=== PATIENT | female | born 1945 | race American Indian/Alaskan Native ===

== ENCOUNTER 2016-05-22 10:23 | Observation (INO) | payer OTHER, MEDICAID ==
[2016-05-22 10:41] VITALS: BMI 26.9
[2016-05-22] MEDS ORDERED: Sodium Chloride 0.9% 500 ML IV ONE ×2 (12:08→13:15)
--- NOTE | 2016-05-22 12:26 | C.PDOC ---
History Of Present Illness The patient, a 71 y/o female, presents to the emergency department for evaluation of symptoms of vertigo which began this morning. Patient states her vertigo worsens when she stands. Patient also notes pain in her left shoulder and upper back. She denies fever, chills, headache, recent trauma/injury. Time Seen by Provider: 05/22/16 11:32 Chief Complaint (Nursing): Dizziness/Lightheaded History Per: Patient History/Exam Limitations: no limitations Onset/Duration Of Symptoms: Hrs Current Symptoms Are (Timing): Still Present Additional History Per: Patient Past Medical History Reviewed: Historical Data, Nursing Documentation, Vital Signs Vital Signs: Last Vital Signs Temp 97.6 F 05/22/16 10:40 Pulse 52 L 05/22/16 13:25 Resp 17 05/22/16 13:25 BP 146/65 05/22/16 13:25 Pulse Ox 99 05/22/16 15:24 - Medical History PMH: HTN Surgical History: No Surg Hx Family History: States: Unknown Family Hx - Social History Hx Tobacco Use: Yes Hx Alcohol Use: No Hx Substance Use: No - Immunization History Hx Tetanus Toxoid Vaccination: No Hx Influenza Vaccination: Yes Hx Pneumococcal Vaccination: No Review Of Systems Except As Marked, All Systems Reviewed And Found Negative. Constitutional: Negative for: Fever, Chills Musculoskeletal: Positive for: Shoulder Pain (left), Back Pain (upper) Neurological: Positive for: Other (+vertigo-like symptoms ) Physical Exam - Physical Exam Appears: Non-toxic, No Acute Distress, Other (unsteady ) Skin: Normal Color, Warm, Dry Head: Atraumatic, Normacephalic Eye(s): bilateral: Normal Inspection, EOMI Ear(s): Bilateral: Normal Oral Mucosa: Moist Neck: Normal ROM, Supple Chest: No Symmetrical (chronic asymmetry of shoulders (L compared to R)), No Deformity, No Tenderness Cardiovascular: Rhythm Regular, No Murmur Respiratory: Normal Breath Sounds, No Rales, No Rhonchi, No Wheezing Back: Normal Inspection, No Vertebral Tenderness, No Decreased ROM, No Paraspinal Tenderness Extremity: Normal ROM, Capillary Refill (less than 2 seconds) Neurological/Psych: Oriented x3, Normal Speech Gait: Unsteady ED Course And Treatment - Laboratory Results Result Diagrams: 05/22/16 13:31 05/22/16 14:15 ECG: Interpreted By Me ECG Rhythm: Sinus Bradycardia ECG Interpretation: Normal Rate From EC O2 Sat by Pulse Oximetry: 99 (on RA) Pulse Ox Interpretation: Normal Progress Note: Labs,CT Head, CXR, and EKG ordered and reviewed. Patient received Antivert PO and IV Fluids. ED OBSERVATION Discharge: Yes Date of observation admission: 05/22/16 Time of observation admission: 11:00 - Observation admission statement Patient is being placed in observation because:: DIZZY; CHRONIC BACK PAIN - Goals of Observation Goals of observation are:: NEG ACUTE NEURO; SX IMPROVE - Progress Note Progress Note: 05/22/16 15:39 FEELS BETTER, AMBUL WO DIFF. TOLERATING PO. Disposition Counseled Patient/Family Regarding: Studies Performed, Diagnosis, Need For Followup, Rx Given - Disposition Disposition: HOME/ ROUTINE Disposition Time: 15:40 Condition: IMPROVED - POA Present On Arrival: None - Clinical Impression Clinical Impression: Vertigo, Shoulder pain, Muscle pain - Scribe Statement The provider has reviewed the documentation as recorded by the Scribe (Jackelin Perez) Provider Attestation: All medical record entries made by the Scribe were at my direction and personally dictated by me. I have reviewed the chart and agree that the record accurately reflects my personal performance of the history, physical exam, medical decision making, and the department course for this patient. I have also personally directed, reviewed, and agree with the discharge instructions and disposition.
--- NOTE | 2016-05-22 13:30 | CT ---
PROCEDURE: CT HEAD WITHOUT CONTRAST. HISTORY: DIZZY COMPARISON: Comparison made with prior study dated 02/18/2014. . TECHNIQUE: Axial computed tomography images were obtained through the head/brain without intravenous contrast. Radiation dose: Total exam DLP = 782.31 mGy-cm. FINDINGS: HEMORRHAGE: No acute parenchymal, subarachnoid or extra-axial hemorrhage. BRAIN: Minor chronic periventricular white matter ischemic changes seen extending peripherally into the deep white matter both cerebral hemispheres. VENTRICLES: Mild generalized volume loss. CALVARIUM: There are no acute calvarial fractures. Somewhat elliptical shaped lucency within the right parietal calvarium nonspecific. This appears stable when compared with prior study. PARANASAL SINUSES: Frontal sinuses are hypoplastic. Remaining visualized paranasal sinuses are well-developed and currently well-aerated. MASTOID AIR CELLS: Unremarkable as visualized. No inflammatory changes. OTHER FINDINGS: None. IMPRESSION: No acute intracranial hemorrhage. Mild chronic white matter ischemic changes. Mild generalized volume loss.
[2016-05-22 13:34] LABS: BASO # 0.1 K/uL (0.0-0.2); BASO % 0.8 % (0.0-2.0); EOS % 0.6 % (0.0-4.0); HEMATOCRIT 43.5 % (34.0-47.0); LYMPH # 3.8 K/uL (1.0-4.3); LYMPH % 53.4 % (20.0-40.0); MEAN CELL VOLUME 88.2 fL (81.0-99.0); MEAN CORPUSCULAR HEMOGLOBIN 29.2 pg (27.0-31.0); MEAN CORPUSCULAR HGB CONC 33.1 g/dL (33.0-37.0); MEAN PLATELET VOLUME 9.3 fL (7.2-11.7); MONO # 0.4 K/uL (0.0-0.8); NRBC % 0.1 % (0.0-2.0); RED CELL DISTRIBUTION WIDTH 13.9 % (11.5-14.5); WHITE BLOOD COUNT 7.1 K/uL (4.8-10.8)
[2016-05-22 14:31] LABS: CHLORIDE 105 mmol/L (98-107); SODIUM 140 mmol/L (132-148)
[2016-05-22 14:32] LABS: POTASSIUM 4.1 mmol/L (3.6-5.2)
[2016-05-22 14:34] LABS: GFR AFRICAN-AMERICAN > 60
[2016-05-22 14:35] LABS: BLOOD UREA NITROGEN 13 mg/dL (7-17); CALCIUM 8.7 mg/dl (8.6-10.4); CARBON DIOXIDE 24 mmol/L (22-30); GLUCOSE,RANDOM 79 mg/dL (65-105)
--- NOTE | 2016-05-22 14:48 | RAD ---
PROCEDURE: CHEST RADIOGRAPH, 1 VIEW HISTORY: DIZZY COMPARISON: Comparison chest dated 02/18/2014 FINDINGS: LUNGS: No acute cardiopulmonary disease PLEURA: No pneumothorax or pleural fluid seen. CARDIOVASCULAR: Heart size upper limits of normal. Aorta is slightly ectatic and uncoiled. OSSEOUS STRUCTURES: No significant abnormalities. VISUALIZED UPPER ABDOMEN: Normal. OTHER FINDINGS: None. IMPRESSION: No acute cardiopulmonary disease.
[2016-05-22 15:51] VITALS: BP 122/80; PULSE 61; RESP 18; TEMP 97.9; O2SAT 98
--- NOTE | 2016-05-23 20:17 | CARD ---
APPROVED REPORT EKG Measurement Heart [id number] <Conclusion> Sinus bradycardia Voltage criteria for left ventricular hypertrophy Cannot rule out Septal infarct, age undetermined Abnormal ECG
== END 2016-05-22 15:40 | disposition home or self-care (01) ==
LOC: C.ER 10:23 → C.9OBSV 11:00
PROVIDERS: ADMIT Emergency Medicine; ATTEND Emergency Medicine
DX: R42 Dizziness and giddiness (principal); M25.512 Pain in left shoulder; M54.6 Pain in thoracic spine; I10 Essential (primary) hypertension; F17.210 Nicotine dependence, cigarettes, uncomplicated
CPT/HCPCS: 36415; 70450; 71010; 80048; 84484; 85025; 93005; 99285; G0378; J7040

== ENCOUNTER 2016-12-23 13:41 | Emergency (ER) | payer OTHER, MEDICAID ==
[2016-12-23 13:41] VITALS: BMI 26.9
[2016-12-23 13:58] VITALS: TEMP 98.1
[2016-12-23] MEDS ORDERED: Sodium Chloride 0.9% 1,000 ML IV STA (14:27)
--- NOTE | 2016-12-23 14:31 | C.PDOC ---
History Of Present Illness 71 y/o F c PMHx HTN p/w L sided neck pain and swelling x 2 days. Patient reports feeling nauseated. She denies trouble swallowing, pulsatile mass, vision change, tinnitus, neck stiffness, fever, dyspnea, sore throat, trauma. Time Seen by Provider: 12/23/16 14:21 Chief Complaint (Nursing): Back Pain Past Medical History Vital Signs: Last Vital Signs Temp 98.1 F 12/23/16 16:40 Pulse 67 12/23/16 16:40 Resp 18 12/23/16 16:40 BP 151/80 H 12/23/16 16:40 Pulse Ox 100 12/23/16 16:40 - Medical History PMH: HTN Family History: States: Unknown Family Hx - Social History Hx Tobacco Use: Yes Hx Alcohol Use: No Hx Substance Use: No - Immunization History Hx Tetanus Toxoid Vaccination: No Hx Influenza Vaccination: Yes Hx Pneumococcal Vaccination: No Review Of Systems Except As Marked, All Systems Reviewed And Found Negative. Constitutional: Negative for: Fever Respiratory: Negative for: Shortness of Breath Physical Exam - Physical Exam Additional Physical Exam Comments: Constitutional: No acute distress. Head: Normocephalic. Atraumatic. Eyes: PERRL. ENT: Moist mucous membranes. No erythema or exudate. No mass visible in oropharynx. Neck: Supple. No discernible swelling. No bruit or thrill in neck. No nuchal rigidity. Cardiovascular: Regular rate. Radial pulse 2+ bilaterally. Chest: No tenderness. Respiratory: Clear to auscultation bilaterally. GI: Soft. Nontender. Non distended. Back: No CVA tenderness. Musculoskeletal: No tenderness or swelling of extremities. Skin: No rash. Neurologic: Alert, no focal deficit. ED Course And Treatment - Laboratory Results Result Diagrams: 12/23/16 15:16 12/23/16 15:16 O2 Sat by Pulse Oximetry: 98 Medical Decision Making Medical Decision Making: Toradol and Zofran. Will image neck for any mass/abscess. Impression: No evidence of large cervical mass or collection. No significant cervical adenopathy as above. Small low-attenuation focus left lobe thyroid gland; thyroid ultrasound followup recommended. Sclerotic changes of the C3 and C4 segments felt to be degenerative in origin. Clinical correlation recommended to exclude the possibility of primary malignancy in this patient. Disposition - Disposition Referrals: Selvin Taveras MD [Medical Doctor] - Disposition: HOME/ ROUTINE Disposition Time: 17:27 Condition: STABLE Prescriptions: Ibuprofen [Motrin] 600 mg PO Q6 #25 tab Instructions: Thyroid Nodules (ED) Forms: [employer] (Greenlandic) - Clinical Impression Clinical Impression: Thyroid lesion - Scribe Statement The provider has reviewed the documentation as recorded by the Scribe Jena Villalpando All medical record entries made by the Scribe were at my direction and personally dictated by me. I have reviewed the chart and agree that the record accurately reflects my personal performance of the history, physical exam, medical decision making, and the department course for this patient. I have also personally directed, reviewed, and agree with the discharge instructions and disposition.
[2016-12-23 15:22] LABS: BASO # 0.1 K/uL (0.0-0.2); BASO % 1.2 % (0.0-2.0); EOS # 0.1 K/uL (0.0-0.7); EOS % 0.9 % (0.0-4.0); HEMATOCRIT 43.4 % (34.0-47.0); LYMPH # 3.1 K/uL (1.0-4.3); LYMPH % 43.4 % (20.0-40.0); MEAN CELL VOLUME 88.7 fL (81.0-99.0); MEAN CORPUSCULAR HEMOGLOBIN 29.7 pg (27.0-31.0); MEAN CORPUSCULAR HGB CONC 33.5 g/dL (33.0-37.0); MEAN PLATELET VOLUME 9.6 fL (7.2-11.7); MONO # 0.4 K/uL (0.0-0.8); MONO % 6.3 % (0.0-10.0); NRBC % 0.1 % (0.0-2.0); RED CELL DISTRIBUTION WIDTH 13.8 % (11.5-14.5); WHITE BLOOD COUNT 7.1 K/uL (4.8-10.8)
[2016-12-23] MEDS ORDERED: Sodium Chloride 0.9% 1,000 ML ONE (15:26)
[2016-12-23 15:29] LABS: CHLORIDE 102 mmol/L (98-107)
[2016-12-23 15:30] LABS: POTASSIUM 4.3 mmol/L (3.6-5.2); SODIUM 138 mmol/L (132-148)
[2016-12-23 15:32] LABS: GFR AFRICAN-AMERICAN > 60
[2016-12-23 15:33] LABS: BLOOD UREA NITROGEN 15 mg/dL (7-17); CALCIUM 9.7 mg/dl (8.6-10.4); CARBON DIOXIDE 29 mmol/L (22-30); GLUCOSE,RANDOM 106 mg/dL (65-105)
[2016-12-23] MEDS ORDERED: Iodixanol 320 MG/ML 100 ML BOTTLE IV ONE (16:15)
[2016-12-23 16:49] VITALS: BP 151/80; PULSE 67; RESP 18
--- NOTE | 2016-12-23 17:28 | CT ---
PROCEDURE: CT scan of the neck dated 12/23/2016 HISTORY: Left-sided neck pain and swelling. COMPARISON: No prior study available comparison TECHNIQUE: CT of the neck with intravenous contrast. Coronal and sagittal reformats generated. Intravenous contrast dose: 393.85 Radiation dose: DLP 393.85 mGy-cm This CT exam was performed using one or more of the following dose reduction techniques: Automated exposure control, adjustment of the mA and/or kV according to patient size, and/or use of iterative reconstruction technique. . FINDINGS: Current study reveals no large cervical mass or collection. Multiple small nonspecific bilateral cervical lymph nodes are seen in the posterior cervical spaces, jugulodigastric, submandibular and submental regions none of which appear pathologically enlarged. The visualized cervical arterial vasculature unremarkable. The common carotid arteries, carotid bifurcations and internal carotid arteries are widely patent without evidence of occlusion or significant stenosis. Jugular veins are also patent. Submandibular and parotid glands unremarkable. . Questionable small low-attenuation focus left lobe thyroid gland. Thyroid ultrasound could be performed for further evaluation if necessary. . There are no masses or collections seen within oral cavity. [place] tonsils are slightly prominent on the left side. There is asymmetry of the vallecula which is likely due to some encroachment of lingual tonsils as well as some residual and or retained secretion. The free margin of the epiglottis unremarkable. Slight asymmetry of the aryepiglottic folds left-sided which is slightly more prominent than the right however the aryepiglottic. The pyriform sinuses appear relatively symmetric. True vocal cords appear unremarkable. Lung apices are clear. No evidence of apical pneumothorax. Low or There are sclerotic changes seen involving C3 and C4 segments. Findings are likely degenerative however correlation with history recommended to to exclude the possibility of a primary carcinoma and to exclude the possibility of sclerotic metastasis. Impression: No evidence of large cervical mass or collection. No significant cervical adenopathy as above. Small low-attenuation focus left lobe thyroid gland; thyroid ultrasound followup recommended. Sclerotic changes of the C3 and C4 segments felt to be degenerative in origin. Clinical correlation recommended to exclude the possibility of primary malignancy in this patient.
[2016-12-23 17:32] VITALS: O2SAT 98
== END 2016-12-23 17:39 | disposition home or self-care (01) ==
LOC: C.ER 13:41
DX: E07.89 Other specified disorders of thyroid (principal); I10 Essential (primary) hypertension; Z87.891 Personal history of nicotine dependence
CPT/HCPCS: 70491; 80048; 85025; 96374; 96375; 99284; J1885; J2405; J7040; Q9967

== ENCOUNTER 2018-02-16 12:50 | Emergency (ER) | payer OTHER, MEDICAID ==
[2018-02-16 13:03] VITALS: BMI 26.6
[2018-02-16 13:07] VITALS: RESP 20; TEMP 99
[2018-02-16] MEDS ORDERED: Benzocaine/Menthol (Cepacol) Lozenge MT ONE (14:16)
--- NOTE | 2018-02-16 14:16 | C.PDOC ---
History Of Present Illness 73 y/o female pt with hx of HTN c/o sore throat with chest pain and abdominal pain for x3 days. Associated sx includes cough with sputum. Pt notes she was seen in [facility] [place] a couple of days ago for similar sx and was discharged. Pt was a re-evaluation. She denies nausea, vomiting and diarrhea. Time Seen by Provider: 02/16/18 13:58 Chief Complaint (Nursing): Abdominal Pain History Per: Patient History/Exam Limitations: no limitations Onset/Duration Of Symptoms: Days Current Symptoms Are (Timing): Still Present Past Medical History Reviewed: Historical Data, Nursing Documentation, Vital Signs Vital Signs: Last Vital Signs Temp 99.0 F 02/16/18 13:05 Pulse 70 02/16/18 13:05 Resp 20 02/16/18 13:05 BP 142/83 02/16/18 13:05 Pulse Ox 100 02/16/18 13:05 - Medical History PMH: HTN Family History: States: Unknown Family Hx - Social History Hx Tobacco Use: Yes Hx Alcohol Use: No Hx Substance Use: No - Immunization History Hx Tetanus Toxoid Vaccination: No Hx Influenza Vaccination: Yes Hx Pneumococcal Vaccination: No Review Of Systems Except As Marked, All Systems Reviewed And Found Negative. ENT: Positive for: Throat Pain Cardiovascular: Positive for: Chest Pain Respiratory: Positive for: Cough (with sputum ) Gastrointestinal: Positive for: Abdominal Pain. Negative for: Nausea, Vomiting, Diarrhea Physical Exam - Physical Exam Appears: Non-toxic, No Acute Distress Skin: Warm, Dry Head: Normacephalic Eye(s): bilateral: Normal Inspection, EOMI Oral Mucosa: Moist Throat: Normal, No Erythema, No Exudate, Other (uvula midline ) Neck: Normal ROM, Supple Chest: Symmetrical Cardiovascular: Rhythm Regular Respiratory: Normal Breath Sounds, No Rales, No Rhonchi, No Wheezing Gastrointestinal/Abdominal: Soft, Tenderness (epigastric ), No Distention, No Guarding, No Rebound Extremity: No Pedal Edema, Other (foot intact) Extremity: Bilateral: Atraumatic, Normal Color And Temperature Neurological/Psych: Oriented x3, Normal Speech ED Course And Treatment - Laboratory Results Result Diagrams: 02/16/18 14:22 02/16/18 14:22 ECG: Interpreted By Me, Viewed By Me ECG Rhythm: Sinus Bradycardia Interpretation Of ECG: left axis deviation Rate From EC O2 Sat by Pulse Oximetry: 100 (RA) Pulse Ox Interpretation: Normal Medical Decision Making Medical Decision Making: Impression: chest pain, abd pain r/o [place] plans: -- EKG -- Chem labs -- blood work -- CXR -- UA Disposition - Disposition Referrals: [facility] at [facility] [place] [Outside] [facility] at [facility] [Outside] [facility] at [place] [Outside] Disposition: HOME/ ROUTINE Disposition Time: 16:24 Condition: GOOD Prescriptions: Ibuprofen [Motrin] 600 mg PO Q6 #20 tab Saliva Stimulant Comb. No.6 [Oral Relief Lozenges] 1 each MM Q2 #10 lozenge Instructions: Viral Upper Respiratory Infection, Child (DC), Chest Pain (DC) Forms: [employer] (Kazakh) - Clinical Impression Clinical Impression: Viral upper respiratory infection - Scribe Statement The provider has reviewed the documentation as recorded by the Scribe Oriana Carrasco Provider Attestation: All medical record entries made by the Scribe were at my direction and p ersonally dictated by me. I have reviewed the chart and agree that the record accurately reflects my personal performance of the history, physical exam, medical decision making, and the department course for this patient. I have also personally directed, reviewed, and agree with the discharge instructions and disposition.
[2018-02-16 14:28] LABS: BASO # 0.1 K/uL (0.0-0.2); BASO % 1.4 % (0.0-2.0); EOS # 0.1 K/uL (0.0-0.7); EOS % 0.8 % (0.0-4.0); HEMOGLOBIN 13.9 g/dL (11.0-16.0); LYMPH # 2.6 K/uL (1.0-4.3); LYMPH % 42.8 % (20.0-40.0); MEAN CELL VOLUME 89.9 fL (81.0-99.0); MEAN CORPUSCULAR HEMOGLOBIN 30.7 pg (27.0-31.0); MEAN CORPUSCULAR HGB CONC 34.2 g/dL (33.0-37.0); MEAN PLATELET VOLUME 9.4 fL (7.2-11.7); MONO # 0.4 K/uL (0.0-0.8); MONO % 6.9 % (0.0-10.0); NEUT # 2.9 K/uL (1.8-7.0); NEUT % 48.1 % (50.0-75.0); NRBC % 0.2 % (0.0-2.0); RBC 4.53 Mil/uL (3.80-5.20); RED CELL DISTRIBUTION WIDTH 13.7 % (11.5-14.5); WHITE BLOOD COUNT 6.1 K/uL (4.8-10.8)
[2018-02-16 14:43] LABS: ALB/GLOB RATIO 1.3 (1.0-2.1); ALT/SGPT 25 U/L (9-52); AST/SGOT 25 U/L (14-36); BLOOD UREA NITROGEN 18 mg/dL (7-17); CALCIUM 9.2 mg/dl (8.6-10.4); GFR NON-AFRICAN AMERICAN > 60
[2018-02-16 15:51] LABS: SQUAMOUS EPITHIAL 1 /hpf (0-5); URINE BILIRUBIN NEGATIVE (NEGATIVE); URINE BLOOD 1+ (NEGATIVE); URINE CLARITY Clear (Clear); URINE COLOR Yellow (YELLOW); URINE GLUCOSE (UA) NORMAL (Normal); URINE LEUKOCYTE ESTERASE NEG Leu/uL (Negative); URINE PROTEIN NEGATIVE (NEGATIVE); URINE UROBILINOGEN NORMAL mg/dL (0.2-1.0)
[2018-02-16 15:55] VITALS: BP 158/80; PULSE 59
--- NOTE | 2018-02-16 17:56 | RAD ---
Date of service: 02/16/2018 HISTORY: chest pain COMPARISON: Portable chest 05/22/2016. FINDINGS: LUNGS: No active pulmonary disease. PLEURA: No significant pleural effusion identified, no pneumothorax apparent. CARDIOVASCULAR: Calcific atherosclerotic changes are seen related to the thoracic aorta. Mild cardiomegaly again evident. No pulmonary vascular congestion. OSSEOUS STRUCTURES: No significant abnormalities. VISUALIZED UPPER ABDOMEN: Normal. OTHER FINDINGS: None. IMPRESSION: Stable mild cardiomegaly. No interval acute cardiopulmonary disease appreciable. No pulmonary vascular congestion.
--- NOTE | 2018-02-18 17:28 | CARD ---
APPROVED REPORT Date of service: 02/16/2018 EKG Measurement Heart [id number] <Conclusion> Sinus bradycardia Possible Left atrial enlargement Incomplete right bundle branch block Left ventricular hypertrophy Cannot rule out Septal infarct, age undetermined Abnormal ECG
[2018-02-22 10:24] VITALS: O2SAT 100
== END 2018-02-16 16:23 | disposition home or self-care (01) ==
LOC: C.ER 12:50
DX: J06.9 Acute upper respiratory infection, unspecified (principal); I10 Essential (primary) hypertension; F17.210 Nicotine dependence, cigarettes, uncomplicated

== ENCOUNTER 2018-04-10 12:09 | Emergency (ER) | payer OTHER, MEDICAID ==
[2018-04-10 12:09] VITALS: BMI 26.6
--- NOTE | 2018-04-10 12:59 | C.PDOC ---
History Of Present Illness 73 y/o female with a PMHx of high cholesterol, presents to the ED with neck pain for 2 days, onset upon waking up. States it does not feel stiff. Patient indicates pain at area near C6, pain is described as throbbing, worse with neck movement. No associated fever, headache, nausea, vomiting, numbness, or weakness. She also notes left shoulder pain but no chest pain or SOB. Patient cannot recall any known trauma or fall. Admits she may have slept on the area in unusual position. Time Seen by Provider: 04/10/18 12:36 Chief Complaint (Nursing): Headache History Per: Patient History/Exam Limitations: no limitations Onset/Duration Of Symptoms: Hrs Current Symptoms Are (Timing): Still Present Quality: "Pain" Past Medical History Reviewed: Historical Data, Nursing Documentation, Vital Signs Vital Signs: Last Vital Signs Temp 98.5 F 04/10/18 12:25 Pulse 63 04/10/18 12:25 Resp 18 04/10/18 12:25 BP 137/89 04/10/18 12:25 Pulse Ox 95 04/10/18 12:25 - Medical History PMH: HTN, Hypercholesterolemia Other Surgeries: Tubal ligation Family History: States: Unknown Family Hx - Social History Hx Tobacco Use: Yes Hx Alcohol Use: No Hx Substance Use: No - Immunization History Hx Tetanus Toxoid Vaccination: No Hx Influenza Vaccination: Yes Hx Pneumococcal Vaccination: No Review Of Systems Constitutional: Negative for: Fever, Chills, Sweats Eyes: Negative for: Vision Change Cardiovascular: Negative for: Chest Pain Respiratory: Negative for: Cough, Shortness of Breath Gastrointestinal: Negative for: Nausea, Vomiting Musculoskeletal: Positive for: Neck Pain, Shoulder Pain Skin: Negative for: Rash, Lesions Neurological: Negative for: Weakness, Numbness, Headache, Dizziness Physical Exam - Physical Exam Appears: Non-toxic, No Acute Distress Skin: Warm, Dry Head: Normacephalic Eye(s): bilateral: Normal Inspection, PERRL, EOMI Oral Mucosa: Moist Neck: Trachea Midline, Midline Cervical Tenderness (Point tenderness over C6), Supple, Other (No meningeal signs- negative kernig's and brudzinskis) Chest: Symmetrical Cardiovascular: Rhythm Regular, No Friction Rub Respiratory: No Rales, No Rhonchi, No Wheezing Gastrointestinal/Abdominal: Soft, No Tenderness, No Distention Extremity: Normal ROM (with FROM of left upper extremity, neurovascularly intact), Tenderness, Capillary Refill (< 2 sec), No Deformity Pulses: Left Radial: Normal, Right Radial: Normal Neurological/Psych: Oriented x3 Gait: Steady ED Course And Treatment O2 Sat by Pulse Oximetry: 95 (RA) Pulse Ox Interpretation: Normal - CT Scan/US CT C-Spine Other Rad Studies (CT/US): Read By Radiologist, Radiology Report Reviewed CT/US Interpretation: Accession No. : [id number]. Patient Name / ID : CORBY FLORES / [id number]. Exam Date : 04/10/2018 13:44:51 ( Approved ). Study Comment : Sex / Age : F / 73Y. Creator : Mariah Blake. Dictator : Bassam Ortez MD. Airplane And Engine Inspector : [employer] Salesperson : Bassam Ortez MD. Approver2 : Report Date : 04/10/2018 13:56:29. My Comment : . Date of service: 04/10/2018. PROCEDURE: CT Cervical Spine without contrast. HISTORY: c6 pain. COMPARISON: Limited comparison made to prior neck CT with contrast 12/23/2016. TECHNIQUE: Axial computed tomography images were obtained of the cervical spine without the use of intravenous contrast. Coronal and sagittal reformatted images were created and reviewed. Radiation dose: Total exam DLP = 444.53 mGy-cm. This CT exam was performed using one or more of the following dose reduction techniques: Automated exposure control, adjustment of the mA and/or kV according to patient size, and/or use of iterative reconstruction technique. FINDINGS: VERTEBRAE: No fracture. Normal alignment. No destructive bony lesion. DISCS/SPINAL CANAL/NEURAL FORAMINA: No significant central canal or neural foraminal stenosis. Advanced degenerative disc disease is increased at C3-4 and is moderate at C2-3 comprised of extensive disc osteophyte complexes at the left C3 root foramen, moderate to severe left C4 root foraminal stenosis and moderate left C4 root foraminal stenosis. No large disc herniation is appreciate however MRI is more sensitive. Irregular disc osteophyte complex at C4-5 results in left greater than right neural foraminal stenosis, mild with mild disc bulging at C6-7 without significant central canal stenosis evident. PARASPINAL SOFT T ISSUES: Unremarkable. OTHER FINDINGS: None. IMPRESSION: No acute fracture or spondylolisthesis identified. Advanced upper cervical degenerative changes result in bilateral neural foraminal stenoses and mild C4-5 central canal stenosis, left greater than right. MRI is available for follow-up clinically warranted. Medical Decision Making Medical Decision Makin73 y/o F presenting with c/o neck pain and left shoulder pain. No neck stiffness, fever, chills, night sweats, headache, dizziness, visual changes, numbness, weakness, or other deficit. No chest pain or SOB. Plan: - 400 mg PO Motrin - Left shoulder x-ray - CT Cervical Spine 1503 pt notes improvement of pain L shoulder unremarkable per my read CT w/ out fx mild stenosis to c4-c5, endorsed to pt, need to f/u with PMD and ortho. She is agreeable to plan. remains w/ out FND or neurological deficits. Disposition - Disposition Referrals: Peyton Manzano MD [Staff Provider] - [facility] [Outside] [facility] [Outside] [facility] [Outside] Disposition: HOME/ ROUTINE Disposition Time: 15:06 Condition: GOOD Additional Instructions: FOLLOW UP WITH YOUR ORTHOPEDIC DOCTOR FOR YOUR CT FINDINGS ON YOUR NECK. TAKE OVER THE COUNTER TYLENOL OR MOTRIN DIRECTED ON THE BOTTLE FOR PAIN. SANDRA TAVAREZ, thank you for letting us take care of you today. Your provider was Mario Brunson and you were treated for NECK PAIN. The emergency medical care you received today was directed at your acute symptoms. If you were prescribed any medication, please fill it and take as directed. It may take several days for your symptoms to resolve. Return to the Emergency Department if your symptoms worsen, do not improve, or if you have any other problems. Please contact your doctor or call one of the physicians/clinics you have been referred to that are listed on the Patient Visit Information form that is included in your discharge packet. Bring any paperwork you were given at discharge with you along with any medications you are taking to your follow up visit. Our treatment cannot replace ongoing medical care by a primary care provider outside of the emergency department. Thank you for allowing the [facility] team to be part of your care today. If you had an X-Ray or CT scan: A Radiologist will review the ED reading if any change in treatment is needed we will contact you. If you had a blood, urine, or wound culture: It will take several days for the results, if any change in treatment is needed we will contact you. If you had an STI test: It will take 48 hours for the results. Please call after 1 week if you have not heard back. Instructions: Muscle Strain, Neck Pain Forms: [employer] (Malian) - Clinical Impression Clinical Impression: Neck pain, Muscle strain - Scribe Statement The provider has reviewed the documentation as recorded by the Austin Saleem Provider Attestation: All medical record entries made by the Sherryibrobe were at my direction and personally dictated by me. I have reviewed the chart and agree that the record accurately reflects my personal performance of the history, physical exam, medical decision making, and the department course for this patient. I have also personally directed, reviewed, and agree with the discharge instructions and disposition.
--- NOTE | 2018-04-10 14:17 | CT ---
Date of service: 04/10/2018 PROCEDURE: CT Cervical Spine without contrast HISTORY: c6 pain COMPARISON: Limited comparison made to prior neck CT with contrast 12/23/2016. TECHNIQUE: Axial computed tomography images were obtained of the cervical spine without the use of intravenous contrast. Coronal and sagittal reformatted images were created and reviewed. Radiation dose: Total exam DLP = 444.53 mGy-cm. This CT exam was performed using one or more of the following dose reduction techniques: Automated exposure control, adjustment of the mA and/or kV according to patient size, and/or use of iterative reconstruction technique. FINDINGS: VERTEBRAE: No fracture. Normal alignment. No destructive bony lesion. DISCS/SPINAL CANAL/NEURAL FORAMINA: No significant central canal or neural foraminal stenosis. Advanced degenerative disc disease is increased at C3-4 and is moderate at C2-3 comprised of extensive disc osteophyte complexes at the left C3 root foramen, moderate to severe left C4 root foraminal stenosis and moderate left C4 root foraminal stenosis. No large disc herniation is appreciate however MRI is more sensitive. Irregular disc osteophyte complex at C4-5 results in left greater than right neural foraminal stenosis, mild with mild disc bulging at C6-7 without significant central canal stenosis evident. PARASPINAL SOFT TISSUES: Unremarkable. OTHER FINDINGS: None. IMPRESSION: No acute fracture or spondylolisthesis identified. Advanced upper cervical degenerative changes result in bilateral neural foraminal stenoses and mild C4-5 central canal stenosis, left greater than right. MRI is available for follow-up clinically warranted.
--- NOTE | 2018-04-10 15:00 | RAD ---
Date of service: 04/10/2018 PROCEDURE: Radiographs of the Left Shoulder HISTORY: L sholder pain COMPARISON: No prior. FINDINGS: BONES: No acute fracture or destructive bony lesion identified. JOINTS: Degenerative changes seen the acromioclavicular and glenohumeral joints without subluxation or dislocation. SOFT TISSUES: Normal. OTHER FINDINGS: None. IMPRESSION: Degenerative joint disease. No acute fracture or dislocation identified left shoulder.
[2018-04-10 15:19] VITALS: BP 112/75; PULSE 58; RESP 16; TEMP 98.2; O2SAT 98
== END 2018-04-10 15:26 | disposition home or self-care (01) ==
LOC: C.ER 12:09
DX: S16.1XXA Strain of muscle, fascia and tendon at neck level, initial encounter (principal); X58.XXXA Exposure to other specified factors, initial encounter; M54.2 Cervicalgia; I10 Essential (primary) hypertension; E78.00 Pure hypercholesterolemia, unspecified; Z72.0 Tobacco use